=== PATIENT | male | born 1965 | race Caucasian/White ===

== ENCOUNTER 2021-08-02 16:40 | Observation (INO) ==
[2021-08-02] MEDS ORDERED: Melatonin 3 MG TABLET PO PRN (19:27)
[2021-08-02] MEDS ORDERED: Naloxone 0.4 MG/ML INJ IVP PRN (19:27)
[2021-08-02] MEDS ORDERED: *HR* LORazepam 2 MG/ML VIAL IVP PRN (20:42)
[2021-08-03 02:37] LABS: Basophils % 0.6 %; Eosinophils % 0.9 %; Hematocrit 37.6 % (37.5-50.1); Hemoglobin 12.4 g/dL (12.9-16.9); Immature Granulocytes % 0.3 % (0-4); Lymphocytes # 0.4 K/mcL (0.6-4.6); Lymphocytes % 11.5 %; Mean Corpuscular Hemoglobin 29.3 pg (28.0-33.3); Mean Corpuscular Volume 88.9 fL (83.0-100.0); Mean Platelet Volume 8.7 fL (9.4-12.4); Monocytes # 0.5 K/mcL (0.0-1.3); Monocytes % 14.8 %; Neutrophils # 2.4 K/mcL (1.6-8.9); Platelet Count 193 K/mcL (140-400); Red Blood Count 4.23 M/mcL (4.19-5.50); Red Cell Distribution Width 12.6 % (11.5-14.5); Segmented Neutrophils % 71.9 %; White Blood Count 3.4 K/mcL (4.3-11.1)
[2021-08-03 03:03] LABS: Alanine Aminotransferase 10 Units/L (7-52); Albumin 3.9 g/dL (3.5-5.7); Albumin/Globulin Ratio 1.5 (1.1-2.2); Alkaline Phosphatase 61 Units/L (34-104); Aspartate Amino Transferase 15 Units/L (13-39); BUN/Creatinine Ratio 14 (6-26); Bilirubin,Total 0.3 mg/dL (0.3-1.0); Blood Urea Nitrogen 16 mg/dL (6-20); Calcium 8.6 mg/dL (8.6-10.3); Carbon Dioxide 24 mEq/L (23-29); Chloride 105 mEq/L (98-107); Globulin 2.6 g/dL (2.4-3.5); Glucose 99 mg/dL (70-105); Magnesium 2.1 mg/dL (1.6-2.6); Osmolality,Calculated 285 (280-300); Potassium 3.8 mEq/L (3.5-5.1); Sodium 137 mEq/L (136-145); Total Protein 6.5 g/dL (6.4-8.9); eGFR For African Americans > 60 (> 60); eGFR For Non-African Americans > 60 (> 60)
[2021-08-03] MEDS: *HR* Enoxaparin 40 MG/0.4 ML SYRINGE SQ SCH (05:03)
[2021-08-03] MEDS: amLODIPine 5 MG TABLET PO SCH (08:34)
[2021-08-03] MEDS ORDERED: Gadolinium Contrast Agent (WT Based) IV PRN (08:41)
[2021-08-03] MEDS: Ipratropium 1 PUFF INHALER IH PRN ×2 (09:37→15:49)
[2021-08-03] MEDS: lisinopriL 20 MG TABLET PO SCH (20:40)
[2021-08-03] MEDS: Metoprolol 100 MG TABLET PO SCH (20:41)
[2021-08-03] MEDS: cloNIDine HCL 0.1 MG TABLET PO SCH (21:02)
[2021-08-03] MEDS ORDERED: Saline Nasal Spray 44 ML BOTTLE NS PRN (21:48)
[2021-08-04 03:04] LABS: Basophils % 0.6 %; Eosinophils % 1.2 %; Hematocrit 38.6 % (37.5-50.1); Immature Granulocytes % 0.3 % (0-4); Lymphocytes # 0.4 K/mcL (0.6-4.6); Lymphocytes % 13.4 %; Mean Corpuscular HGB Conc 33.7 g/dL (31.6-35.5); Mean Corpuscular Hemoglobin 30.2 pg (28.0-33.3); Mean Corpuscular Volume 89.8 fL (83.0-100.0); Mean Platelet Volume 9.1 fL (9.4-12.4); Monocytes # 0.7 K/mcL (0.0-1.3); Monocytes % 20.5 %; Neutrophils # 2.1 K/mcL (1.6-8.9); Platelet Count 221 K/mcL (140-400); Red Cell Distribution Width 12.7 % (11.5-14.5); White Blood Count 3.2 K/mcL (4.3-11.1)
[2021-08-04 03:23] LABS: BUN/Creatinine Ratio 12 (6-26); Blood Urea Nitrogen 15 mg/dL (6-20); Calcium 9.2 mg/dL (8.6-10.3); Carbon Dioxide 26 mEq/L (23-29); Chloride 104 mEq/L (98-107); Glucose 97 mg/dL (70-105); Osmolality,Calculated 289 (280-300); Potassium 4.1 mEq/L (3.5-5.1); Sodium 139 mEq/L (136-145); eGFR For African Americans > 60 (> 60); eGFR For Non-African Americans > 60 (> 60)
[2021-08-04 03:37] LABS: Platelet Estimate Normal (Normal)
[2021-08-04 03:38] VITALS: PULSE 66
[2021-08-04] MEDS: *HR* Enoxaparin 40 MG/0.4 ML SYRINGE SQ SCH (06:45)
[2021-08-04 07:28] VITALS: BP 138/87; TEMP 98.1
[2021-08-04 11:11] VITALS: O2SAT 97
[2021-08-04] MEDS: Metoprolol 100 MG TABLET PO SCH (11:11)
[2021-08-04] MEDS: amLODIPine 5 MG TABLET PO SCH (11:11)
[2021-08-04] MEDS: lisinopriL 20 MG TABLET PO SCH (11:11)
[2021-08-04] MEDS: cloNIDine HCL 0.1 MG TABLET PO SCH (11:11)
== END 2021-08-04 12:23 | disposition home or self-care (01) ==
LOC: 3BNU → SUATTDRO 19:06
PROVIDERS: ADMIT Student in an Organized Health Care Education/Training Program; ATTEND Internal Medicine